=== PATIENT | female | born 1980 | race Caucasian/White ===

== ENCOUNTER → 2019-04-01 | Outpatient (CLI) | payer OTHER ==
[2019-04-01 08:52] LABS: EOS # 0.3 (0.04-0.40); EOS % 4.7 % (1.0-5.0); HEMOGLOBIN 11.6 g/dL (12.5-16.0); MEAN CELL VOLUME 86 fl (78-100); MEAN CORPUSCULAR HEMOGLOBIN 28 pg (27-31); MEAN CORPUSCULAR HGB CONC 32 g/dL (33-37); MEAN PLATELET VOLUME 9.2 fl (7.4-10.4); MONO # 0.5 (0.20-0.80); PLATELET COUNT 238 K/mm3 (130-400); RED BLOOD COUNT 4.17 M/mm3 (4.10-5.30); RED CELL DISTRIBUTION WIDTH 14.4 % (11.5-14.5); WHITE BLOOD COUNT 6.8 K/mm3 (4.8-10.8)
[2019-04-01 09:00] LABS: ALBUMIN 3.6 g/dL (3.5-5.0); POTASSIUM 3.3 mmol/L (3.5-5.1)
[2019-04-01 09:02] LABS: CALCIUM 8.8 mg/dL (8.3-10.5)
[2019-04-01 09:03] LABS: TOTAL PROTEIN 7.1 g/dL (6.4-8.3)
[2019-04-01 09:05] LABS: TOTAL BILIRUBIN 0.6 mg/dL (0.2-1.2)
[2019-04-01 09:54] LABS: ERYTHROCYTE SEDIMENTATION RATE 95 mm/hr (0-20)
== END ==
LOC: LAB 08:40
PROVIDERS: Internal Medicine
DX: L03.113 Cellulitis of right upper limb (principal); T63.301A Toxic effect of unspecified spider venom, accidental (unintentional), initial encounter

== ENCOUNTER → 2020-04-04 | Outpatient (CLI) | payer OTHER ==
[2020-04-04 12:09] LABS: HEMATOCRIT 40.5 % (37.0-47.0); HEMOGLOBIN 12.8 g/dL (12.5-16.0); MEAN CELL VOLUME 89 fl (78-100); MEAN CORPUSCULAR HEMOGLOBIN 28 pg (27-31); MEAN CORPUSCULAR HGB CONC 32 g/dL (33-37); MEAN PLATELET VOLUME 10.5 fl (7.4-10.4); PLATELET COUNT 198 K/mm3 (130-400); RED BLOOD COUNT 4.54 M/mm3 (4.10-5.30); RED CELL DISTRIBUTION WIDTH 13.7 % (11.5-14.5); WHITE BLOOD COUNT 10.9 K/mm3 (4.8-10.8)
[2020-04-04 12:18] LABS: ALBUMIN 4.4 g/dL (3.5-5.0); POTASSIUM 3.7 mmol/L (3.5-5.1)
[2020-04-04 12:22] LABS: TOTAL BILIRUBIN 0.6 mg/dL (0.2-1.2)
[2020-04-04 12:28] LABS: LYMPHOCYTE 5 % (20-51); MONOCYTE 4 % (3-10); NEUTROPHILS 88 % (42-75)
[2020-04-04 13:11] LABS: ERYTHROCYTE SEDIMENTATION RATE 9 mm/hr (0-20)
== END ==
LOC: LAB 10:40
PROVIDERS: Nurse Practitioner
DX: R30.0 Dysuria (principal); R52 Pain, unspecified

== ENCOUNTER → 2021-03-26 | Outpatient (CLI) | payer OTHER | LOC: AMSURD 10:21 | DX: M54.6 Pain in thoracic spine (principal) ==

== ENCOUNTER → 2021-04-04 | Outpatient (CLI) | payer OTHER | LOC: MAMMO 13:00 | DX: Z12.31 Encounter for screening mammogram for malignant neoplasm of breast (principal); R92.1 Mammographic calcification found on diagnostic imaging of breast ==